=== PATIENT | male | born 2000 | race Caucasian/White ===

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

== ENCOUNTER 2020-12-23 10:38 | Emergency (ER) | payer OTHER ==
[~2020-12-23] VITALS: Ht 177.8 cm; Wt 75.0 kg
[2020-12-23 10:45] VITALS: BP 111/63
[2020-12-23] MEDS ORDERED: HYDROcodone/APAP 7.5 MG/325 MG (LORTAB, LORCET PLUS) TABLET PO STA (10:57)
--- NOTE | 2020-12-23 11:26 | ED Lower Extremity ---
General Chief Complaint: Lower Extremity Stated Complaint: LT FOOT INJ Nursing Triage Note: Pt injured while working when a Skid Steer bent right foot backward. Pt has pain and moderate swelling top of right foot. Pt is accompanied by his employer Source: patient Exam Limitations: no limitations History of Present Illness Date Seen by Provider: Dec 23, 2020 Time Seen by Provider: 10:54 Initial Comments Here with significant swelling to the top of the right foot and pain in the right ankle especially just below the lateral malleolus after twisting it when stepping off a skid steer. Apparently his foot got caught on a peg and was bent over laterally and anteriorly. Denies other injury. Does complain of rather significant pain to that area. Swelling noted. Onset: just prior to arrival (Approximately 1 hour ago) Severity: moderate Pain/Injury Location: right foot, right ankle Method of Injury: twisted Modifying Factors: Improves With Immobilization; Worse With Movement Allergies and Home Medications Allergies Coded Allergies: No Known Drug Allergies (Unverified , 12/23/20) Home Medications No Active Prescriptions or Reported Meds Patient Home Medication List Home Medication List Reviewed: Yes Review of Systems Constitutional: see HPI; No chills, No fever Respiratory: no symptoms reported Cardiovascular: no symptoms reported Musculoskeletal: see HPI, joint pain, joint swelling, muscle pain Skin: change in color; No lesions Psychiatric/Neurological: No Symptoms Reported Past Yqyesta-Vpegaw-Bgiqgn Hx Patient Social History Tobacco type used: Cigarettes Use of E-Cig and/or Vaping dev: Yes Use of E-Cig and/or Vaping [place]: Current Everyday User Substance use?: No Alcohol Use?: Yes Alcohol Frequency: Couple times a week Pt feels they are or have been: No Immunizations Up To Date Influenza Vaccine Up-to-Date: No; Not Current Seasonal Allergies Seasonal Allergies: No Past Medical History Surgery/Hospitalization HX: L elbow surgery, L carpal tunnel release, R cyst removal and tendon work Surgeries: Yes (WRIST SURGERY AND REMOVAL OF A CYST) Respiratory: No Cardiac: No Neurological: No Genitourinary: No Gastrointestinal: No Musculoskeletal: No Endocrine: No HEENT: No Cancer: No Psychosocial: Yes ADD/ADHD, Suicide Attempts Integumentary: No Blood Disorders: No Adverse Reaction/Blood Tranf: No Family Medical History Reviewed Nursing Family Hx Physical Exam Vital Signs Vital Signs - First Documented 12/23/20 10:45 Temp 36.9 Pulse 64 Resp 16 B/P (MAP) 111/63 (79) Pulse Ox 100 O2 Delivery Room Air Capillary Refill : Less Than 3 Seconds Height, Weight, BMI Height: '" Weight: lbs. oz. kg; 23.00 BMI Method: General Appearance: WD/WN, mild distress Cardiovascular: regular rate, rhythm, no murmur Respiratory: lungs clear, normal breath sounds Ankles: right ankle limited range of motion, right ankle pain, right ankle soft tissue tenderness (Lateral malleolus), right ankle swelling Feet: right foot limited range of motion, right foot soft tissue tenderness, right foot swelling (Proximal foot on the dorsum especially in the middle to the lateral aspect and towards lateral malleolus) Neurologic/Tendon: normal sensation, normal tendon functions Neurologic/Psychiatric: alert, oriented x 3 Progress/Results/Core Measures Results/Orders My Orders Orders - WAN SALDAÑA MD Hydrocodone/Apap 7.5/325 Tab (Lortab 7. (12/23/20 10:57) Ankle 3 View Right (12/23/20 10:57) Foot 3 View Right (12/23/20 10:57) Vital Signs/I&O 12/23/20 12/23/20 10:45 11:13 Temp 36.9 36.9 Pulse 64 Resp 16 B/P (MAP) 111/63 (79) Pulse Ox 100 O2 Delivery Room Air Blood Pressure Mean: 79 Progress Progress Note : Progress Note Seen and evaluated. Hydrocodone 7.5/325 1 tab p.o. X-ray of right ankle and foot. Monitor patient. 1140: No acute fracture. Nathan wrap and gel splint applied. Pain is a little better after meds. Discharged home with return precautions. Patient verbalized understanding of instructions and agreement with plan. Diagnostic Imaging Diagonstic Imaging: Xray Comments [facility], [place] NAME: KALANI GIRON MED REC#: [id number] PT STATUS: REG ER : 2000 PHYSICIAN: WAN SALDAÑA MD ADMIT DATE: 12/23/20/ER FS Draft Date of Exam:12/23/20 FOOT 3 VIEW RIGHT INDICATION: Pain. Three views of the right foot were obtained. FINDINGS: The alignment is normal. There is no fracture or dislocation. Soft tissues are unremarkable. IMPRESSION: No acute fracture or dislocation Dictated on workstation # [id number] Dict: 12/23/205 Trans: 12/23/20 1127 ISMA [id number] Interpreted by: FARNAZ ONOFRE MD Electronically signed by: Diagonstic Imaging: Xray Plain Films/CT/US/NM/MRI: ankle Comments [facility], [place] NAME: KALANI GIRON [facility] REC#: [id number] PT STATUS: REG ER : 2000 PHYSICIAN: WAN SALDAÑA MD ADMIT DATE: 12/23/20/ER FS Draft Date of Exam:12/23/20 ANKLE 3 VIEW RIGHT INDICATION: Pain and swelling. 3 views were obtained. FINDINGS: The alignment is normal. The plafond and talar dome intact. Ankle mortise is symmetric. No fracture or dislocation. Soft tissue swelling laterally. IMPRESSION: Soft tissue swelling laterally, otherwise unremarkable. Dictated on workstation # [id number] Dict: 12/23/20 1125 Trans: 12/23/20 [facility]7 CV [id number] Interpreted by: FARNAZ ONOFRE MD Electronically signed by: Departure Impression Primary Impression: Strain of tendon of right foot and ankle Qualified Codes: S96.911A - Strain of unspecified muscle and tendon at ankle and foot level, right foot, initial encounter Disposition: 01 HOME, SELF-CARE Condition: Stable Departure-Patient Inst. Decision time for Depature: 11:40 Referrals: [facility] (PCP/Family) Primary Care Physician HOWARD CARPIO Patient Instructions: Ankle Sprain (DC), How to Use Crutches Add. Discharge Instructions: All discharge instructions reviewed with patient and/or family. Voiced understanding. You may take ibuprofen 600 mg every 8 hours as needed for pain. You may also take Tylenol/acetaminophen 1000 mg every 8 hours as needed for pain. Use the RICE therapy including rest, ice packs 20 minutes/h as needed to reduce swelling, compression the Nathan wrap's as needed for comfort and elevation. Follow-up with your doctor early next week for recheck and further evaluation if not improved. You may also follow-up with the orthopedist listed or of your choosing as needed. You may use crutches that are locally purchased as needed for comfort. Return for worse pain, weakness, numbness or other concerns as needed. Scripts No Active Prescriptions or Reported Meds WAN SALDAÑA MD Dec 23, 2020 11:25
== END 2020-12-23 11:46 | disposition home or self-care (01) ==
LOC: EDUNIT# 10:38 → ER FS 10:40
DX: S96.911A Strain of unspecified muscle and tendon at ankle and foot level, right foot, initial encounter (principal); F17.210 Nicotine dependence, cigarettes, uncomplicated; X50.1XXA Overexertion from prolonged static or awkward postures, initial encounter
CPT/HCPCS: 73610; 73630; 99283; L4350

== ENCOUNTER 2021-02-05 02:19 | Emergency (ER) | payer OTHER ==
--- OUTSIDE RECORDS SUMMARY | 2021-02-05 02:25 | XMS REPORT | Clinical Summary ---
Author Author [facility] Organization [facility] Address Unknown Phone Unavailable Care Team Providers Care Accountant Budget Name Role Phone No, Pcp CAN DRAGGER PP Unavailable Allergies No known active allergies Medications End Date Status Medication Sig Dispensed Refills Start Date Active STRATTERA 40 mg capsule 5 5 Active lisdexamfetamine 50 mg every 0 (VYVANSE) 50 MG capsule morning. Active Problems Not on file Social History Date Tobacco Use Types Packs/Day Years Used Never Smoker Comments Alcohol Use Standard Drinks/Week Not Asked 0 (1 standard drink = 0.6 o z pure alcohol) Sex Assigned at Date Recorded Not on file Last Filed Vital Signs Reading Time Taken Comments Vital Sign 100/70 01/15/2015 7:10 PM CDT Blood Pressure 95 01/15/2015 7:10 PM CDT Pulse 36.4 C (97.5 F) 01/15/2015 7:10 PM CDT Temperature 16 01/15/2015 7:10 PM CDT Respiratory Rate 99% 01/15/2015 7:10 PM CDT Oxygen Saturation - - Inhaled Oxygen Concentration 50.8 kg (112 lb) 01/15/2015 7:10 PM CDT Weight 162.6 cm (5' 4") 01/15/2015 7:10 PM CDT Height 19.22 01/15/2015 7:10 PM CDT Body Mass Index Plan of Treatment Not on file Results Not on filefrom Last 3 Months Care Teams Start Date End Date Accountant Budget Relationship Specialty 08/14/18 No, Pcp, CAN DRAGGER PCP - General N/A Do not use
--- OUTSIDE RECORDS SUMMARY | 2021-02-05 02:25 | XMS REPORT | Clinical Summary ---
Author Author [facility] Organization [facility] Address Unknown Phone Unavailable Care Team Providers Care Construction Sales Representative Name Role Phone PCP Unavailable Allergies No Known Active Allergies Medications End Date Status Medication Sig Dispensed Refills Start Date Active lisdexamfetamine Take 50 mg by 0 (VYVANSE) 50 MG capsule mouth every morning. Active atomoxetine (STRATTERA) Take 60 mg by 0 60 MG capsule mouth daily. Active escitalopram oxalate Take 10 mg by 0 (LEXAPRO) 10 mg tablet mouth daily. Active Problems Not on file Social History Date Tobacco Use Types Packs/Day Years Used Current Every Day Smoker Cigarettes, Electronic Cigarettes Smokeless Tobacco: Never Used Comments Alcohol Use Standard Drinks/Week No 0 (1 standard drink = 0.6 o z pure alcohol) Sex Assigned at Date Recorded Not on file Last Filed Vital Signs Reading Time Taken Comments Vital Sign 104/72 12/15/2018 1:45 AM CDT Blood Pressure 72 12/14/2018 10:37 PM CDT Pulse 37 C (98.6 F) 12/14/2018 10:37 PM CDT Temperature 16 12/14/2018 10:37 PM CDT Respiratory Rate 98% 12/15/2018 1:45 AM CDT Oxygen Saturation - - Inhaled Oxygen Concentration 67 kg (147 lb 11.3 oz) 12/14/2018 10:37 PM CDT Weight 180.3 cm (5' 11") 12/14/2018 10:37 PM CDT Height 20.6 12/14/2018 10:37 PM CDT Body Mass Index Plan of Treatment Not on file Results Not on filefrom Last 3 Months Insurance Type Payer Benefit Subscriber ID Effective Phone Address Plan / Dates Group AETNA AETNA [id number] 2017-P LOCAL resent Jose Alfredo De La Cruz Personal/F Self [id number] [place] (Home) [place] [id number] Advance Directives For more information, please contact: [phone] Patient Paper Hanger Explanation Type Date Recorded Health Care Directive
--- OUTSIDE RECORDS SUMMARY | 2021-02-05 02:25 | XMS REPORT | Clinical Summary ---
Author Author [facility] Organization [facility] Address Unknown Phone Unavailable Care Team Providers Care Maitre D' Name Role Phone Reinier Ojeda PCP Source Comments Some departments are not documenting in the electronic medical record. If you d o not see the information that you expected, contact [facility] [employer] Information Management department at [phone] for further assistan ce in locating additional records.[facility] Allergies No Known Active Allergies Medications End Date Status Medication Sig Dispensed Refills Start Date Active lisdexamfetamine Take 60 mg by 0 dimesylate (VYVANSE PO) mouth. Active Problems No known active problems Social History Date Tobacco Use Types Packs/Day Years Used Never Smoker Smokeless Tobacco: Never Used Comments: He does Vape Sex Assigned at Date Recorded Not on file Last Filed Vital Signs Reading Time Taken Comments Vital Sign 117/69 05/08/2018 10:58 AM OXYGEN THERAPIST Blood Pressure 72 05/08/2018 10:58 AM OXYGEN THERAPIST Pulse 37.1 C (98.7 F) 04/07/2018 11:35 PM CDT Temperature 14 05/08/2018 10:58 AM OXYGEN THERAPIST Respiratory Rate 100% 05/08/2018 10:58 AM OXYGEN THERAPIST Oxygen Saturation - - Inhaled Oxygen Concentration 67.1 kg (148 lb) 05/08/2018 10:58 AM OXYGEN THERAPIST Weight 177.8 cm (5' 10") 05/08/2018 10:58 AM OXYGEN THERAPIST Height 21.24 05/08/2018 10:58 AM OXYGEN THERAPIST Body Mass Index Plan of Treatment Health Maintenance Due Date Last Done Comments HPV VACCINES (1 - Male 2011 2-dose series) HIV SCREENING 2015 DTAP/TDAP VACCINES (1 - 2018 Tdap) HEPATITIS C SCREENING 2018 PHYSICAL (COMPREHENSIVE) 2018 EXAM INFLUENZA VACCINE 03/12/2021 MENINGOCOCCAL VACCINE Aged Out No longer eligib le based on patient's age to (Brando DAVID) complete this topic Results Not on filefrom Last 3 Months Insurance Type Payer Benefit Subscriber ID Effective Phone Address Plan / Dates Group AETNA AETNA [id number] 2017-P PPO/ELECT/ resent MGD CHOICE [id number] Advance Directives Patient Account Group Supervisor Explanation Type Date Recorded Advance 04/07/2018 11:22 PM Directive/DPOA
--- NOTE | 2021-02-05 02:30 | ED Integumentary General ---
General Stated Complaint: RIGHT HAND LACERATION History of Present Illness Date Seen by Provider: Feb 05, 2021 Time Seen by Provider: 02:25 Initial Comments 20-year-old male presents with lacerations to his 4 fingers on his right hand. Patient reports he was getting some tomatoes and the knife slipped. Patient has no other injuries. Patient reports he is up-to-date on his tetanus. Allergies and Home Medications Allergies Coded Allergies: No Known Drug Allergies (Unverified , 12/23/20) Home Medications No Active Prescriptions or Reported Meds Patient Home Medication List Home Medication List Reviewed: Yes Review of Systems Review of Systems Constitutional: no symptoms reported EENTM: no symptoms reported Respiratory: no symptoms reported Cardiovascular: no symptoms reported Genitourinary: no symptoms reported Musculoskeletal: no symptoms reported Skin: see HPI Past Dyqgahz-Egvpji-Xfiwzf Hx Seasonal Allergies Seasonal Allergies: No Past Medical History Surgery/Hospitalization HX: L elbow surgery, L carpal tunnel release, R cyst removal and tendon work Surgeries: Yes (WRIST SURGERY AND REMOVAL OF A CYST) Respiratory: No Cardiac: No Neurological: No Genitourinary: No Gastrointestinal: No Musculoskeletal: No Endocrine: No HEENT: No Cancer: No Psychosocial: Yes ADD/ADHD, Suicide Attempts Integumentary: No Blood Disorders: No Adverse Reaction/Blood Tranf: No Physical Exam Vital Signs Capillary Refill : General Appearance: WD/WN, no apparent distress Neck: full range of motion Cardiovascular: normal peripheral pulses, regular rate, rhythm Respiratory: no respiratory distress, no accessory muscle use Extremities: normal range of motion, normal capillary refill Skin: other (Patient with for approximately 1 cm superficial lacerations on the palmar aspect of the 4 fingers on his right hand.) Procedures/Interventions Wound Location: Upper Extremities Other Wound Location Right ring finger Wound's Depth, Shape: superficial, linear Wound Explored: clean Anesthesia: 1% Lidocaine Volume Anesthetic (ccs): 1 Suture: Plain Suture Size: 4-0 Number of Sutures: 2 Sterile Dressing Applied?: Yes Wound Location: Upper Extremities Other Wound Location Right second third and fifth fingers Wound Length (cm): 1 Wound's Depth, Shape: superficial Wound Explored: clean Other Closure Supply: Wound Adhesive Progress Patient had approximately 1 cm laceration on the second third and fifth finger that was closed with skin adhesive with good approximation no immediate complication Patient tolerated well with no immediate complication Departure Impression Primary Impression: Laceration of right little finger Qualified Codes: S61.226A - Laceration with foreign body of right little finger without damage to nail, initial encounter Additional Impressions: Laceration of right index finger Qualified Codes: S61.210A - Laceration without foreign body of right index finger without damage to nail, initial encounter Laceration of right middle finger Qualified Codes: S61.212A - Laceration without foreign body of right middle finger without damage to nail, initial encounter Laceration of right ring finger Qualified Codes: S61.214A - Laceration without foreign body of right ring finger without damage to nail, initial encounter Disposition: 01 HOME, SELF-CARE Condition: Stable Departure-Patient Inst. Referrals: [facility] (PCP/Family) Primary Care Physician Patient Instructions: Laceration Repair With Stitches ED, Laceration Repair With Glue ED Add. Discharge Instructions: Follow-up with your primary care provider or return to the ER in 8 to 10 days for suture removal Scripts No Active Prescriptions or Reported Meds ARMANDO ELLIS DO Feb 05, 2021 02:30
[2021-02-05 02:59] VITALS: BP 130/74
== END 2021-02-05 03:00 | disposition home or self-care (01) ==
LOC: EDUNIT# 02:19 → ER FS 02:22
DX: S61.210A Laceration without foreign body of right index finger without damage to nail, initial encounter (principal); S61.212A Laceration without foreign body of right middle finger without damage to nail, initial encounter; S61.214A Laceration without foreign body of right ring finger without damage to nail, initial encounter; S61.216A Laceration without foreign body of right little finger without damage to nail, initial encounter; W26.0XXA Contact with knife, initial encounter
CPT/HCPCS: 12001

== ENCOUNTER 2021-02-24 20:01 | Emergency (ER) | payer OTHER ==
[~2021-02-24] VITALS: Ht 177 cm; Wt 71.0 kg
[2021-02-24] MEDS ORDERED: fentaNYL INJ 100 MCG/2 ML AMP IVP ONE (20:15)
[2021-02-24] MEDS ORDERED: IOHEXOL 350 MG/ML 100 ML (OMNIPAQUE 350) VIAL IV ONE (20:30)
[2021-02-24] MEDS ORDERED: HOLD METFORMIN - RECEIVED CONTRAST 20 ML VIAL IV SCH (20:30)
[2021-02-24] MEDS ORDERED: NS 100 ML (IVPB) BAG IV ONE (20:30)
[2021-02-24 20:36] LABS: BASOPHILS # (AUTO) 0.1 10^3/uL (0.0-0.1); BASOPHILS % (AUTO) 1 % (0-10); EOSINOPHILS % (AUTO) 0 % (0-10); HEMATOCRIT 48 % (40-54); HEMOGLOBIN 15.6 g/dL (13.3-17.7); LYMPHOCYTES % (AUTO) 14 % (12-44); MEAN CORPUSCULAR HEMOGLOBIN 30 pg (25-34); MEAN CORPUSCULAR HGB CONC 33 g/dL (32-36); MEAN CORPUSCULAR VOLUME 93 fL (80-99); MEAN PLATELET VOLUME 9.9 fL (9.0-12.2); MONOCYTES # (AUTO) 0.8 10^3/uL (0.0-1.0); MONOCYTES % (AUTO) 6 % (0-12); NEUTROPHILS # (AUTO) 11.6 10^3/uL (1.8-7.8); NEUTROPHILS % (AUTO) 80 % (42-75); PLATELET COUNT 315 10^3/uL (130-400); WHITE BLOOD COUNT 14.5 10^3/uL (4.3-11.0)
[2021-02-24 20:52] LABS: ALANINE AMINOTRANSFERASE 16 U/L (0-55); ALBUMIN 4.6 GM/DL (3.2-4.5); ALKALINE PHOSPHATASE 85 U/L (40-136); BILIRUBIN,TOTAL 0.8 MG/DL (0.1-1.0); BUN/CREATININE RATIO 8; CALCIUM 9.9 MG/DL (8.5-10.1); CARBON DIOXIDE 25 MMOL/L (21-32); CHLORIDE 103 MMOL/L (98-107); CREATININE SERUM 1.05 MG/DL (0.60-1.30); GFR ESTIMATED 90; GLUCOSE 95 MG/DL (70-105); POTASSIUM 3.7 MMOL/L (3.6-5.0); SODIUM 139 MMOL/L (135-145); TOTAL PROTEIN 7.6 GM/DL (6.4-8.2)
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
[2021-02-24 21:18] LABS: BAND NEUTROPHILS 1 %; LYMPHOCYTES % (MANUAL) 11 %; MONOCYTES % (MANUAL) 7 %; NEUTROPHILS % (MANUAL) 81 %; RBC MORPH NORMAL
[2021-02-24 21:35] LABS: BILIRUBIN,URINE NEGATIVE (NEGATIVE); CLARITY,URINE CLEAR; COLOR,URINE YELLOW; GLUCOSE, URINE (UA) NEGATIVE (NEGATIVE); KETONES,URINE NEGATIVE (NEGATIVE); LEUKOCYTE ESTERASE ,URINE NEGATIVE (NEGATIVE); NITRITE,URINE NEGATIVE (NEGATIVE); PH,URINE 7.5 (5-9); PROTEIN,URINE NEGATIVE (NEGATIVE)
[2021-02-24 21:42] LABS: AMORPHOUS SEDIMENT,UR FEW AMOR PHOSPHATE /LPF; BACTERIA,URINE NEGATIVE /HPF
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
[2021-02-24] MEDS ORDERED: ACHD5005 PO (21:45)
[2021-02-24] MEDS ORDERED: KETOROLAC 30 MG/ML VIAL IVP ONE (21:45)
[2021-02-24 22:14] VITALS: BP 126/81
== END 2021-02-24 22:15 | disposition home or self-care (01) ==
LOC: EDUNIT# 20:01 → ER 20:03
DX: S20.211A Contusion of right front wall of thorax, initial encounter (principal); W55.22XA Struck by cow, initial encounter
CPT/HCPCS: 36415; 71260; 74177; 80053; 81000; 84484; 85007; 85025; 85027; 93005